=== PATIENT | female | born 1940 | race Caucasian/White ===

== ENCOUNTER 2024-01-07 10:35 | Outpatient (CLI) | payer MEDICARE, SELFPAY | END 2024-01-07 23:59 | disposition home or self-care (01) | LOC: LAB.DROPOF 01-08 10:36 | PROVIDERS: PCP Nurse Practitioner; Visit Provider Nurse Practitioner | DX: B35.1 Tinea unguium (principal) | CPT/HCPCS: 87102; 87206; 87220 ==

== ENCOUNTER 2024-11-11 11:30 | Outpatient (CLI) | payer MEDICARE, SELFPAY ==
--- NOTE | 2024-11-11 11:34 | XR_ITS ---
FINAL REPORT CLINICAL HISTORY: Left Foot Pain COMPARISON: None FINDINGS: LEFT FOOT Three views demonstrate no acute fracture or dislocation. There are mild diffuse degenerative changes. There are changes of osteopenia. No acute soft tissue abnormality is seen. IMPRESSION: Degenerative changes without acute bony abnormality. Reviewed, Interpreted and Dictated by Juan Dillard MD Transcribed by Edith Triana Authenticated and [facility]
--- NOTE | 2024-11-11 11:34 | XR_ITS ---
FINAL REPORT CLINICAL HISTORY: Right Foot Pain COMPARISON: None FINDINGS: RIGHT FOOT Three views demonstrate no acute fracture or dislocation. There are mild diffuse degenerative changes. There are changes of osteopenia. No acute soft tissue abnormality is seen. IMPRESSION: Degenerative changes without acute bony abnormality. Reviewed, Interpreted and Dictated by Juan Dillard MD Transcribed by Edith Triana Authenticated and [facility]
== END 2024-11-11 23:59 | disposition home or self-care (01) ==
LOC: RAD 11:31
PROVIDERS: PCP Family Medicine; Visit Provider Nurse Practitioner
DX: M19.071 Primary osteoarthritis, right ankle and foot (principal); M19.072 Primary osteoarthritis, left ankle and foot; M20.41 Other hammer toe(s) (acquired), right foot; M20.42 Other hammer toe(s) (acquired), left foot
CPT/HCPCS: 73630